=== PATIENT | male | born 1950 | race Caucasian/White ===

== ENCOUNTER → 2019-08-17 | Outpatient (CLI) | payer MEDICARE, BC ==
[~2019-08-17] MED LIST: ASPIRIN 81M81 MG/TA2 PO; Aspirin PO; COZAAR100 MG PO; DIOVAN 160MG160 MG PO; GLUCOPHAGE XR500 M1 PO; GLUCOPHAGE XR750 MG PO; GLUCOPHAGE500 MG/TAB PO; HCTZ 25MG25 MG PO; HYGROTON 2525 MG/TAB PO; LEVEMIR FLEX100 U/ML SQ; LIPITOR 10MG10 MG PO; NORCO 325 MG-51 TAB PO; NORVASC 5MG5 MG/TAB PO; NORVASC5 MG PO; NOVOLOG FLEX100 U/ML SQ; OMEGA-3 FISH1000 MG PO; PHENERGAN 25 TA25 MG PO; TOPROL XL 25MG25 MG
== END ==
LOC: DIA.ED 13:19
DX: E11.9 Type 2 diabetes mellitus without complications (principal); Z79.84 Long term (current) use of oral hypoglycemic drugs; E66.8 Other obesity; E78.5 Hyperlipidemia, unspecified; I10 Essential (primary) hypertension

== ENCOUNTER → 2019-10-26 | Outpatient (CLI) | payer MEDICARE, BC | LOC: DIA.ED 08:25 | DX: E11.9 Type 2 diabetes mellitus without complications (principal); Z79.4 Long term (current) use of insulin; E66.8 Other obesity; E78.5 Hyperlipidemia, unspecified; I10 Essential (primary) hypertension | CPT/HCPCS: G0108 ==

== ENCOUNTER → 2020-01-25 | Outpatient (CLI) | payer MEDICARE, BC | LOC: DIA.ED 08:38 | DX: E11.9 Type 2 diabetes mellitus without complications (principal); Z79.4 Long term (current) use of insulin; E66.8 Other obesity; I10 Essential (primary) hypertension; E78.5 Hyperlipidemia, unspecified ==

== ENCOUNTER → 2020-05-25 | Outpatient (CLI) | payer MEDICARE, BC | LOC: DIA.ED | DX: E11.9 Type 2 diabetes mellitus without complications (principal); Z79.4 Long term (current) use of insulin; E78.5 Hyperlipidemia, unspecified; I10 Essential (primary) hypertension | CPT/HCPCS: G0270 ==